=== PATIENT | female | born 1960 | race American Indian/Alaskan Native ===

== ENCOUNTER 2017-11-16 08:10 | Outpatient (CLI) | payer MEDICARE ==
[2017-11-16] MEDS ORDERED: XYLOCAINE TOPICAL 4% TP ONE ×2 (08:55→15:49)
== END 2017-11-16 08:11 | disposition home or self-care (01) ==
LOC: WOUND 08:10
PROVIDERS: ATTEND Nurse Practitioner
DX: E10.621 Type 1 diabetes mellitus with foot ulcer (principal); L97.412 Non-pressure chronic ulcer of right heel and midfoot with fat layer exposed; L97.521 Non-pressure chronic ulcer of other part of left foot limited to breakdown of skin; E10.22 Type 1 diabetes mellitus with diabetic chronic kidney disease; N18.6 End stage renal disease; E10.43 Type 1 diabetes mellitus with diabetic autonomic (poly)neuropathy; Z90.710 Acquired absence of both cervix and uterus
CPT/HCPCS: 11042; 11055; G0463; 99205

== ENCOUNTER 2017-11-23 09:14 | Outpatient (CLI) | payer MEDICARE ==
[2017-11-23] MEDS ORDERED: XYLOCAINE TOPICAL 4% TP ONE (09:55)
== END 2017-11-23 09:15 | disposition home or self-care (01) ==
LOC: WOUND 09:14
PROVIDERS: ATTEND Nurse Practitioner
DX: E10.621 Type 1 diabetes mellitus with foot ulcer (principal); L97.412 Non-pressure chronic ulcer of right heel and midfoot with fat layer exposed; L97.521 Non-pressure chronic ulcer of other part of left foot limited to breakdown of skin; E10.22 Type 1 diabetes mellitus with diabetic chronic kidney disease; N18.6 End stage renal disease; E10.42 Type 1 diabetes mellitus with diabetic polyneuropathy; Z90.710 Acquired absence of both cervix and uterus
CPT/HCPCS: 11055

== ENCOUNTER 2017-11-30 09:21 | Outpatient (CLI) | payer MEDICARE ==
[2017-11-30] MEDS ORDERED: XYLOCAINE TOPICAL 4% TP ONE ×2 (09:41→09:49)
== END 2017-11-30 09:22 | disposition home or self-care (01) ==
LOC: WOUND 09:21
PROVIDERS: ATTEND Nurse Practitioner
DX: E10.621 Type 1 diabetes mellitus with foot ulcer (principal); L97.412 Non-pressure chronic ulcer of right heel and midfoot with fat layer exposed; L97.521 Non-pressure chronic ulcer of other part of left foot limited to breakdown of skin; E10.43 Type 1 diabetes mellitus with diabetic autonomic (poly)neuropathy; E10.22 Type 1 diabetes mellitus with diabetic chronic kidney disease; N18.6 End stage renal disease; Z90.710 Acquired absence of both cervix and uterus

== ENCOUNTER 2017-12-14 09:22 | Outpatient (CLI) | payer MEDICARE ==
[2017-12-14] MEDS ORDERED: XYLOCAINE TOPICAL 4% TP ONE (09:49)
[2017-12-14] MEDS ORDERED: SILVER NITRATE TP ONE (10:31)
== END 2017-12-14 09:23 | disposition home or self-care (01) ==
LOC: WOUND 09:22
PROVIDERS: ATTEND Nurse Practitioner
DX: E10.621 Type 1 diabetes mellitus with foot ulcer (principal); L97.412 Non-pressure chronic ulcer of right heel and midfoot with fat layer exposed; L97.521 Non-pressure chronic ulcer of other part of left foot limited to breakdown of skin; E10.43 Type 1 diabetes mellitus with diabetic autonomic (poly)neuropathy; Z90.710 Acquired absence of both cervix and uterus; E10.22 Type 1 diabetes mellitus with diabetic chronic kidney disease; N18.6 End stage renal disease; Z99.2 Dependence on renal dialysis
CPT/HCPCS: 17250; 87075; 87076; 87116; 87186

== ENCOUNTER 2017-12-14 11:15 | Outpatient (CLI) | payer MEDICARE ==
--- NOTE | 2017-12-14 19:12 | XRay Report ---
FINAL REPORT EXAM: XR FOOT 2V RT HISTORY: Type 2 diabetes mellitus with foot ulcer TECHNIQUE: Two views right foot Comparison: None FINDINGS: Global osteopenia. Ill-defined density projects in the region of the plantar 1/2 digit interspace just lateral to the 1st metatarsal head. There is soft tissue swelling of the 1st metatarsal phalangeal joint. The 1st metatarsal head is irregular without definite erosion. Ossicles are poorly defined. There is a mature plantar calcaneal spur. Mild pes planus. There is an ulcer projecting over calcaneus plantar aspect which does not extend to periosteal surface. There is no erosion. No definite isolated soft tissue gas. The ill-defined density between the 1st and 2nd metatarsals is suggestive of irregular ulceration. IMPRESSION: Approximately 3.1 x 1.0 centimeter ulcer projects at the plantar aspect of the calcaneus without definite calcaneal erosion. No separate foci of gas. Irregular density projects between 1st and 2nd metatarsal shafts, localized to the plantar surface on the lateral projection. This may be a 2nd ulcer. Correlate that with physical exam. Irregularity of the 1st metatarsal head and metatarsophalangeal joint appears degenerative. If there is a concern for osteomyelitis, recommend bone scan or MRI right foot.
== END 2017-12-14 11:16 | disposition home or self-care (01) ==
LOC: XRAY 11:15
PROVIDERS: ATTEND Surgery Vascular Surgery
DX: E11.621 Type 2 diabetes mellitus with foot ulcer (principal); M77.32 Calcaneal spur, left foot; M85.872 Other specified disorders of bone density and structure, left ankle and foot

== ENCOUNTER 2017-12-21 09:22 | Outpatient (CLI) | payer MEDICARE ==
[2017-12-21] MEDS ORDERED: XYLOCAINE TOPICAL 4% TP ONE ×2 (09:30→09:45)
== END 2017-12-21 09:23 | disposition home or self-care (01) ==
LOC: WOUND 09:22
PROVIDERS: ATTEND Nurse Practitioner
DX: E10.621 Type 1 diabetes mellitus with foot ulcer (principal); L97.412 Non-pressure chronic ulcer of right heel and midfoot with fat layer exposed; E10.22 Type 1 diabetes mellitus with diabetic chronic kidney disease; N18.6 End stage renal disease; E10.43 Type 1 diabetes mellitus with diabetic autonomic (poly)neuropathy; Z90.710 Acquired absence of both cervix and uterus
CPT/HCPCS: 11055

== ENCOUNTER 2017-12-28 07:55 | Outpatient (CLI) | payer MEDICARE ==
--- NOTE | 2018-01-03 10:54 | Vascular Lab Report ---
LOWER EXTREMITY ARTERIAL DUPLEX: REASON FOR EXAM: Peripheral arterial disease with ulcers. COMMENTS ON THE RIGHT: Triphasic waveforms are seen proximally. Biphasic waveforms are seen distally. No significant velocity gradients are identified. Scattered plaque is seen throughout. Findings are consistent with mildly abnormal perfusion. Findings are consistent with the ability to heal distal wounds. COMMENTS ON THE LEFT: Triphasic waveforms are seen proximally. Biphasic waveforms are seen distally. No significant velocity gradients are identified. Scattered plaque is seen throughout. Findings are consistent with mildly abnormal perfusion. Findings are consistent with the ability to heal distal wounds. IMPRESSION: No obvious significant large arterial occlusion in either lower extremity. Waveforms are mildly abnormal and consistent with distal tibial disease. However flow appears to be preserved to the feet bilaterally. Clinical correlation recommended.
--- NOTE | 2018-01-03 10:55 | Vascular Lab Report ---
LOWER EXTREMITY ARTERIAL PHYSIOLOGIC STUDY: REASON FOR EXAM: Peripheral arterial disease with ulceration. COMMENTS ON THE RIGHT: Ankle brachial index is 1.38. This value is consistent with incompressible vessels. Pulse volume recording at the level of the ankle is normal. Exercise testing was not done. COMMENTS ON THE LEFT: Ankle brachial index is 1.38. This value is consistent with incompressible vessels. Pulse volume recording at the level of the ankle is mildly abnormal. Exercise testing was not done. IMPRESSION: Findings are consistent with incompressible vessels bilaterally. This usually happens with medial calcinosis. Pulse volume recording suggests adequate flow on the right but mildly abnormal flow on the left.
== END 2017-12-28 07:56 | disposition home or self-care (01) ==
LOC: VAS 07:55
PROVIDERS: ATTEND Nurse Practitioner
DX: E10.43 Type 1 diabetes mellitus with diabetic autonomic (poly)neuropathy (principal); L97.412 Non-pressure chronic ulcer of right heel and midfoot with fat layer exposed; I73.9 Peripheral vascular disease, unspecified; R09.89 Other specified symptoms and signs involving the circulatory and respiratory systems
CPT/HCPCS: 93922; 93925

== ENCOUNTER 2017-12-28 09:25 | Outpatient (CLI) | payer MEDICARE ==
[2017-12-28] MEDS ORDERED: XYLOCAINE TOPICAL 4% TP ONE ×2 (10:00→10:01)
== END 2017-12-28 09:26 | disposition home or self-care (01) ==
LOC: WOUND 09:25
PROVIDERS: ATTEND Nurse Practitioner
DX: E10.621 Type 1 diabetes mellitus with foot ulcer (principal); L97.412 Non-pressure chronic ulcer of right heel and midfoot with fat layer exposed; E10.22 Type 1 diabetes mellitus with diabetic chronic kidney disease; N18.6 End stage renal disease; E10.43 Type 1 diabetes mellitus with diabetic autonomic (poly)neuropathy; L97.521 Non-pressure chronic ulcer of other part of left foot limited to breakdown of skin; Z90.710 Acquired absence of both cervix and uterus

== ENCOUNTER 2018-01-04 09:26 | Outpatient (CLI) | payer MEDICARE ==
[2018-01-04] MEDS ORDERED: XYLOCAINE TOPICAL 4% TP ONE (09:40)
== END 2018-01-04 09:27 | disposition home or self-care (01) ==
LOC: WOUND 09:26
PROVIDERS: ATTEND Nurse Practitioner
DX: E10.621 Type 1 diabetes mellitus with foot ulcer (principal); L97.412 Non-pressure chronic ulcer of right heel and midfoot with fat layer exposed; L97.511 Non-pressure chronic ulcer of other part of right foot limited to breakdown of skin; E10.43 Type 1 diabetes mellitus with diabetic autonomic (poly)neuropathy; E10.22 Type 1 diabetes mellitus with diabetic chronic kidney disease; N18.6 End stage renal disease; Z90.710 Acquired absence of both cervix and uterus

== ENCOUNTER 2018-01-04 11:27 | Outpatient (CLI) | payer MEDICARE ==
[2018-01-04 12:06] LABS: Hemoglobin 8.7 gm/dl (10.1-14.3); Mean Corpuscular HGB Conc 30 % (30-34); Platelet Count 222 K/mm3 (140-440); Red Blood Count 4.68 M/mm3 (3.65-5.03)
[2018-01-04 12:07] LABS: Mean Corpuscular Hemoglobin 19 pg (28-32); Mean Corpuscular Volume 62 fl (79-97); Red Cell Distribution Width 20.9 % (13.2-15.2)
[2018-01-04 12:21] LABS: Albumin 4.2 g/dL (3.9-5); Calcium 9.3 mg/dL (8.4-10.2)
--- NOTE | 2018-01-04 12:57 | XRay Report ---
Chest 2 views: History: Diabetic. hbo evaluation Findings: Normal cardiomediastinal silhouette. Trachea is midline. No consolidation, pneumothorax or pleural effusion. Impression: No acute cardiopulmonary findings
--- NOTE | 2018-01-04 12:59 | XRay Report ---
Right foot 2 views: History: Foot ulcer. Findings: Hallux valgus metatarsophalangeal joint great toe right foot. Arthritic changes in the interphalangeal joints great toe, second, third, fourth and fifth toes. Spur posterior inferior calcaneum. No periosteal reaction or lytic lesion. Impression:
== END 2018-01-04 11:28 | disposition home or self-care (01) ==
LOC: XRAY 11:27
PROVIDERS: ATTEND Surgery Vascular Surgery
DX: L97.412 Non-pressure chronic ulcer of right heel and midfoot with fat layer exposed (principal); E08.621 Diabetes mellitus due to underlying condition with foot ulcer; M20.11 Hallux valgus (acquired), right foot; M19.071 Primary osteoarthritis, right ankle and foot
CPT/HCPCS: 36415; 71046; 80053; 83036; 85027

== ENCOUNTER 2018-01-11 10:16 | Outpatient (CLI) | payer MEDICARE ==
[2018-01-11] MEDS ORDERED: XYLOCAINE TOPICAL 4% TP ONE ×2 (10:35→13:00)
[2018-01-11] MEDS ORDERED: SILVER NITRATE TP ONE ×2 (10:44→12:36)
[2018-01-11] MEDS ORDERED: SILVER NITRATE ONE (13:00)
== END 2018-01-11 10:17 | disposition home or self-care (01) ==
LOC: WOUND 10:16
PROVIDERS: ATTEND Surgery
DX: T81.31XD Disruption of external operation (surgical) wound, not elsewhere classified, subsequent encounter (principal); E11.622 Type 2 diabetes mellitus with other skin ulcer; L97.321 Non-pressure chronic ulcer of left ankle limited to breakdown of skin; I10 Essential (primary) hypertension; F17.210 Nicotine dependence, cigarettes, uncomplicated; F20.81 Schizophreniform disorder; Z89.012 Acquired absence of left thumb; Y83.8 Other surgical procedures as the cause of abnormal reaction of the patient, or of later complication, without mention of misadventure at the time of the procedure

== ENCOUNTER 2018-01-18 09:22 | Outpatient (CLI) | payer MEDICARE ==
[2018-01-18] MEDS ORDERED: XYLOCAINE TOPICAL 4% TP ONE ×2 (09:41→09:43)
== END 2018-01-18 09:23 | disposition home or self-care (01) ==
LOC: WOUND 09:22
PROVIDERS: ATTEND Nurse Practitioner
DX: E11.621 Type 2 diabetes mellitus with foot ulcer (principal); L97.412 Non-pressure chronic ulcer of right heel and midfoot with fat layer exposed; E11.42 Type 2 diabetes mellitus with diabetic polyneuropathy; E11.22 Type 2 diabetes mellitus with diabetic chronic kidney disease; N18.6 End stage renal disease; R29.6 Repeated falls; Z90.710 Acquired absence of both cervix and uterus

== ENCOUNTER 2018-02-08 09:51 | Outpatient (CLI) | payer MEDICARE ==
[2018-02-08] MEDS ORDERED: XYLOCAINE TOPICAL 4% TP ONE ×2 (10:07→10:27)
== END 2018-02-08 09:52 | disposition home or self-care (01) ==
LOC: WOUND 09:51
PROVIDERS: ATTEND Surgery
DX: E11.621 Type 2 diabetes mellitus with foot ulcer (principal); L97.412 Non-pressure chronic ulcer of right heel and midfoot with fat layer exposed; E11.42 Type 2 diabetes mellitus with diabetic polyneuropathy; E11.22 Type 2 diabetes mellitus with diabetic chronic kidney disease; N18.6 End stage renal disease; R29.6 Repeated falls; Z90.710 Acquired absence of both cervix and uterus
CPT/HCPCS: 87075; 87076; 87116; 87186

== ENCOUNTER 2018-03-01 10:15 | Outpatient (CLI) | payer MEDICARE ==
[2018-03-01] MEDS ORDERED: XYLOCAINE TOPICAL 4% TP ONE ×2 (10:25→10:26)
[2018-03-01] MEDS ORDERED: SILVER NITRATE TP ONE ×2 (11:13→15:42)
== END 2018-03-01 10:16 | disposition home or self-care (01) ==
LOC: WOUND 10:15
PROVIDERS: ATTEND Surgery
DX: E10.621 Type 1 diabetes mellitus with foot ulcer (principal); L97.412 Non-pressure chronic ulcer of right heel and midfoot with fat layer exposed; E10.42 Type 1 diabetes mellitus with diabetic polyneuropathy; E10.22 Type 1 diabetes mellitus with diabetic chronic kidney disease; N18.6 End stage renal disease; Z90.710 Acquired absence of both cervix and uterus

== ENCOUNTER 2018-04-19 10:26 | Outpatient (CLI) | payer MEDICARE ==
[2018-04-19] MEDS ORDERED: XYLOCAINE TOPICAL 4% TP ONE (10:52)
[2018-04-19] MEDS ORDERED: SILVER NITRATE TP ONE ×2 (11:25→11:59)
[2018-04-20] MEDS ORDERED: NACL 0.9% 500 ML 500 ML ONE (09:57)
[2018-04-20] MEDS ORDERED: HEPARIN/NS 5000 UNIT/500ML(CATH LAB) 500 ML IR ONE (11:50)
[2018-04-20] MEDS ORDERED: HEPARIN/ 0.45% NACL-25,000 UNIT/500 ML 25,000 UNIT/500 ML BAG ONE (11:50)
== END 2018-04-19 10:27 | disposition home or self-care (01) ==
LOC: WOUND 10:26
PROVIDERS: ATTEND Surgery
DX: E11.621 Type 2 diabetes mellitus with foot ulcer (principal); L97.412 Non-pressure chronic ulcer of right heel and midfoot with fat layer exposed; E11.42 Type 2 diabetes mellitus with diabetic polyneuropathy; E11.22 Type 2 diabetes mellitus with diabetic chronic kidney disease; N18.6 End stage renal disease; Z90.710 Acquired absence of both cervix and uterus
CPT/HCPCS: 11042; G0463; J1644; J7040

== ENCOUNTER 2018-04-27 10:54 | Outpatient (CLI) | payer MEDICARE ==
[2018-04-27] MEDS ORDERED: XYLOCAINE TOPICAL 4% TP ONE ×2 (11:07→16:06)
== END 2018-04-27 10:55 | disposition home or self-care (01) ==
LOC: WOUND 10:54
PROVIDERS: ATTEND Surgery
DX: E11.621 Type 2 diabetes mellitus with foot ulcer (principal); L97.412 Non-pressure chronic ulcer of right heel and midfoot with fat layer exposed; E11.42 Type 2 diabetes mellitus with diabetic polyneuropathy; E11.22 Type 2 diabetes mellitus with diabetic chronic kidney disease; N18.6 End stage renal disease; Z90.710 Acquired absence of both cervix and uterus
CPT/HCPCS: 97605

== ENCOUNTER 2018-05-18 10:17 | Outpatient (CLI) | payer MEDICARE ==
[2018-05-18] MEDS ORDERED: XYLOCAINE TOPICAL 4% TP ONE ×2 (10:58→11:29)
[2018-05-18] MEDS ORDERED: SILVER NITRATE TP ONE ×2 (11:46→11:49)
== END 2018-05-18 10:18 | disposition home or self-care (01) ==
LOC: WOUND 10:17
PROVIDERS: ATTEND Surgery
DX: E11.621 Type 2 diabetes mellitus with foot ulcer (principal); L97.412 Non-pressure chronic ulcer of right heel and midfoot with fat layer exposed; E11.42 Type 2 diabetes mellitus with diabetic polyneuropathy; Z90.710 Acquired absence of both cervix and uterus
CPT/HCPCS: 97605

== ENCOUNTER 2018-05-25 11:10 | Outpatient (CLI) | payer MEDICARE ==
[2018-05-25] MEDS ORDERED: XYLOCAINE TOPICAL 4% TP ONE ×2 (11:38→15:52)
== END 2018-05-25 11:11 | disposition home or self-care (01) ==
LOC: WOUND 11:10
PROVIDERS: ATTEND Surgery
DX: E11.621 Type 2 diabetes mellitus with foot ulcer (principal); L97.412 Non-pressure chronic ulcer of right heel and midfoot with fat layer exposed; E11.42 Type 2 diabetes mellitus with diabetic polyneuropathy; Z90.710 Acquired absence of both cervix and uterus
CPT/HCPCS: 97605

== ENCOUNTER 2018-06-01 11:12 | Outpatient (CLI) | payer MEDICARE ==
[2018-06-01] MEDS ORDERED: XYLOCAINE TOPICAL 4% TP ONE ×2 (11:23→11:47)
[2018-06-01] MEDS ORDERED: AD OINTMENT TP ONE (11:24)
[2018-06-01] MEDS ORDERED: AD OINTMENT TP PRN (11:48)
== END 2018-06-01 11:13 | disposition home or self-care (01) ==
LOC: WOUND 11:12
PROVIDERS: ATTEND Surgery
DX: E11.621 Type 2 diabetes mellitus with foot ulcer (principal); L97.412 Non-pressure chronic ulcer of right heel and midfoot with fat layer exposed; E11.42 Type 2 diabetes mellitus with diabetic polyneuropathy; Z90.710 Acquired absence of both cervix and uterus
CPT/HCPCS: 97605; A6250

== ENCOUNTER 2018-06-08 10:25 | Outpatient (CLI) | payer MEDICARE ==
[2018-06-08] MEDS ORDERED: XYLOCAINE TOPICAL 4% TP ONE ×2 (11:18→11:23)
== END 2018-06-08 10:26 | disposition home or self-care (01) ==
LOC: WOUND 10:25
PROVIDERS: ATTEND Surgery
DX: E11.621 Type 2 diabetes mellitus with foot ulcer (principal); L97.412 Non-pressure chronic ulcer of right heel and midfoot with fat layer exposed; E11.42 Type 2 diabetes mellitus with diabetic polyneuropathy; Z90.710 Acquired absence of both cervix and uterus
CPT/HCPCS: 97605

== ENCOUNTER 2018-06-22 11:03 | Outpatient (CLI) | payer MEDICARE ==
[2018-06-22] MEDS ORDERED: XYLOCAINE TOPICAL 4% TP ONE ×2 (11:31→15:37)
== END 2018-06-22 11:04 | disposition home or self-care (01) ==
LOC: WOUND 11:03
PROVIDERS: ATTEND Surgery
DX: E11.621 Type 2 diabetes mellitus with foot ulcer (principal); L97.412 Non-pressure chronic ulcer of right heel and midfoot with fat layer exposed; E11.42 Type 2 diabetes mellitus with diabetic polyneuropathy; Z90.710 Acquired absence of both cervix and uterus
CPT/HCPCS: 87075; 87076; 87116; 87186; 97605

== ENCOUNTER 2018-08-31 11:07 | Outpatient (CLI) | payer MEDICARE ==
[2018-08-31] MEDS ORDERED: XYLOCAINE TOPICAL 4% TP ONE (11:40)
[2018-08-31] MEDS ORDERED: SILVER NITRATE TP ONE (11:41)
== END 2018-08-31 11:08 | disposition home or self-care (01) ==
LOC: WOUND 11:07
PROVIDERS: ATTEND Surgery
DX: E11.621 Type 2 diabetes mellitus with foot ulcer (principal); L97.412 Non-pressure chronic ulcer of right heel and midfoot with fat layer exposed; E11.42 Type 2 diabetes mellitus with diabetic polyneuropathy; E11.22 Type 2 diabetes mellitus with diabetic chronic kidney disease; N18.6 End stage renal disease; Z90.710 Acquired absence of both cervix and uterus
CPT/HCPCS: 97605

== ENCOUNTER 2018-09-07 11:17 | Outpatient (CLI) | payer MEDICARE ==
[2018-09-07] MEDS ORDERED: XYLOCAINE TOPICAL 4% TP ONE (11:32)
[2018-09-07] MEDS ORDERED: SILVER NITRATE TP ONE (12:16)
== END 2018-09-07 11:18 | disposition home or self-care (01) ==
LOC: WOUND 11:17
PROVIDERS: ATTEND Surgery
DX: E11.621 Type 2 diabetes mellitus with foot ulcer (principal); L97.412 Non-pressure chronic ulcer of right heel and midfoot with fat layer exposed; E11.42 Type 2 diabetes mellitus with diabetic polyneuropathy; E11.22 Type 2 diabetes mellitus with diabetic chronic kidney disease; N18.6 End stage renal disease; Z90.710 Acquired absence of both cervix and uterus

== ENCOUNTER 2018-09-14 10:23 | Outpatient (CLI) | payer MEDICARE ==
[2018-09-14] MEDS ORDERED: XYLOCAINE TOPICAL 4% TP ONE (10:35)
== END 2018-09-14 10:24 | disposition home or self-care (01) ==
LOC: WOUND 10:23
PROVIDERS: ATTEND Surgery
DX: E11.621 Type 2 diabetes mellitus with foot ulcer (principal); L97.512 Non-pressure chronic ulcer of other part of right foot with fat layer exposed; E11.42 Type 2 diabetes mellitus with diabetic polyneuropathy; N18.6 End stage renal disease; E11.22 Type 2 diabetes mellitus with diabetic chronic kidney disease; Z90.710 Acquired absence of both cervix and uterus
CPT/HCPCS: 97605

== ENCOUNTER 2018-09-21 11:01 | Outpatient (CLI) | payer MEDICARE ==
[2018-09-21] MEDS ORDERED: XYLOCAINE TOPICAL 4% TP ONE (11:07)
[2018-09-21] MEDS ORDERED: SILVER NITRATE TP ONE (11:07)
== END 2018-09-21 11:02 | disposition home or self-care (01) ==
LOC: WOUND 11:01
PROVIDERS: ATTEND Surgery
DX: E11.621 Type 2 diabetes mellitus with foot ulcer (principal); L97.412 Non-pressure chronic ulcer of right heel and midfoot with fat layer exposed; L84 Corns and callosities; E11.22 Type 2 diabetes mellitus with diabetic chronic kidney disease; N18.6 End stage renal disease; E11.42 Type 2 diabetes mellitus with diabetic polyneuropathy; Z90.49 Acquired absence of other specified parts of digestive tract
CPT/HCPCS: 97605

== ENCOUNTER 2018-09-28 11:13 | Outpatient (CLI) | payer MEDICARE | END 2018-09-28 11:14 | disposition home or self-care (01) | LOC: WOUND 11:13 | PROVIDERS: ATTEND Surgery | DX: E11.621 Type 2 diabetes mellitus with foot ulcer (principal); L97.412 Non-pressure chronic ulcer of right heel and midfoot with fat layer exposed; E11.42 Type 2 diabetes mellitus with diabetic polyneuropathy; E11.22 Type 2 diabetes mellitus with diabetic chronic kidney disease; N18.6 End stage renal disease; Z99.2 Dependence on renal dialysis; Z90.710 Acquired absence of both cervix and uterus | CPT/HCPCS: 87075; 87076; 87116; 87186; 97605 ==

== ENCOUNTER 2018-10-05 11:02 | Outpatient (CLI) | payer MEDICARE ==
[2018-10-05] MEDS ORDERED: DAKIN'S FULL STRENGTH TP ONE (11:57)
== END 2018-10-05 11:03 | disposition home or self-care (01) ==
LOC: WOUND 11:02
PROVIDERS: ATTEND Surgery
DX: E11.621 Type 2 diabetes mellitus with foot ulcer (principal); L97.412 Non-pressure chronic ulcer of right heel and midfoot with fat layer exposed; E11.42 Type 2 diabetes mellitus with diabetic polyneuropathy; E11.22 Type 2 diabetes mellitus with diabetic chronic kidney disease; N18.6 End stage renal disease; Z90.710 Acquired absence of both cervix and uterus

== ENCOUNTER 2018-10-12 11:21 | Outpatient (CLI) | payer MEDICARE | END 2018-10-12 11:22 | disposition home or self-care (01) | LOC: WOUND 11:21 ==

== ENCOUNTER 2018-10-19 11:03 | Outpatient (CLI) | payer MEDICARE ==
[2018-10-19] MEDS ORDERED: SILVER NITRATE TP ONE (11:51)
[2018-10-19] MEDS ORDERED: AD OINTMENT TP PRN (12:19)
== END 2018-10-19 11:04 | disposition home or self-care (01) ==
LOC: WOUND 11:03
PROVIDERS: ATTEND Surgery
DX: E11.621 Type 2 diabetes mellitus with foot ulcer (principal); L97.412 Non-pressure chronic ulcer of right heel and midfoot with fat layer exposed; E11.42 Type 2 diabetes mellitus with diabetic polyneuropathy; E11.22 Type 2 diabetes mellitus with diabetic chronic kidney disease; N18.6 End stage renal disease; Z90.710 Acquired absence of both cervix and uterus
CPT/HCPCS: 97605; A6250

== ENCOUNTER 2018-10-26 11:11 | Outpatient (CLI) | payer MEDICARE ==
[2018-10-26] MEDS ORDERED: AD OINTMENT TP SCH (12:00)
[2018-10-26] MEDS ORDERED: XYLOCAINE TOPICAL 4% TP ONE (12:16)
== END 2018-10-26 11:12 | disposition home or self-care (01) ==
LOC: WOUND 11:11
PROVIDERS: ATTEND Surgery
DX: E11.621 Type 2 diabetes mellitus with foot ulcer (principal); L97.412 Non-pressure chronic ulcer of right heel and midfoot with fat layer exposed; L84 Corns and callosities; E11.22 Type 2 diabetes mellitus with diabetic chronic kidney disease; N18.6 End stage renal disease; E11.42 Type 2 diabetes mellitus with diabetic polyneuropathy; Z90.710 Acquired absence of both cervix and uterus
CPT/HCPCS: 97605; A6250

== ENCOUNTER 2018-11-02 11:05 | Outpatient (CLI) | payer MEDICARE ==
[2018-11-02] MEDS ORDERED: XYLOCAINE TOPICAL 4% TP ONE (12:41)
== END 2018-11-02 11:06 | disposition home or self-care (01) ==
LOC: WOUND 11:05
PROVIDERS: ATTEND Surgery
DX: E11.621 Type 2 diabetes mellitus with foot ulcer (principal); L97.412 Non-pressure chronic ulcer of right heel and midfoot with fat layer exposed; E11.22 Type 2 diabetes mellitus with diabetic chronic kidney disease; N18.6 End stage renal disease; E11.42 Type 2 diabetes mellitus with diabetic polyneuropathy; Z90.710 Acquired absence of both cervix and uterus
CPT/HCPCS: 97605

== ENCOUNTER 2018-11-09 10:58 | Outpatient (CLI) | payer MEDICARE ==
[2018-11-09] MEDS ORDERED: XYLOCAINE TOPICAL 4% TP ONE (11:45)
== END 2018-11-09 10:59 | disposition home or self-care (01) ==
LOC: WOUND 10:58
PROVIDERS: ATTEND Surgery
DX: E11.621 Type 2 diabetes mellitus with foot ulcer (principal); L97.412 Non-pressure chronic ulcer of right heel and midfoot with fat layer exposed; E11.22 Type 2 diabetes mellitus with diabetic chronic kidney disease; N18.6 End stage renal disease; E11.42 Type 2 diabetes mellitus with diabetic polyneuropathy; Z90.710 Acquired absence of both cervix and uterus
CPT/HCPCS: 97605

== ENCOUNTER 2018-11-16 10:56 | Outpatient (CLI) | payer MEDICARE ==
[2018-11-16] MEDS ORDERED: SILVER NITRATE TP ONE (11:30)
== END 2018-11-16 10:57 | disposition home or self-care (01) ==
LOC: WOUND 10:56
PROVIDERS: ATTEND Surgery
DX: E11.621 Type 2 diabetes mellitus with foot ulcer (principal); L97.412 Non-pressure chronic ulcer of right heel and midfoot with fat layer exposed; L84 Corns and callosities; E11.22 Type 2 diabetes mellitus with diabetic chronic kidney disease; N18.6 End stage renal disease; E11.42 Type 2 diabetes mellitus with diabetic polyneuropathy; Z90.710 Acquired absence of both cervix and uterus
CPT/HCPCS: 97605

== ENCOUNTER 2018-11-30 10:53 | Outpatient (CLI) | payer MEDICARE | END 2018-11-30 10:54 | disposition home or self-care (01) | LOC: WOUND 10:53 | PROVIDERS: ATTEND Surgery | DX: E11.621 Type 2 diabetes mellitus with foot ulcer (principal); L97.412 Non-pressure chronic ulcer of right heel and midfoot with fat layer exposed; L84 Corns and callosities; E11.42 Type 2 diabetes mellitus with diabetic polyneuropathy; E11.22 Type 2 diabetes mellitus with diabetic chronic kidney disease; N18.6 End stage renal disease; Z90.710 Acquired absence of both cervix and uterus | CPT/HCPCS: 97605 ==

== ENCOUNTER 2018-12-07 10:53 | Outpatient (CLI) | payer MEDICARE ==
[2018-12-07] MEDS ORDERED: XYLOCAINE TOPICAL 4% TP ONE (10:56)
[2018-12-08] MEDS ORDERED: AD OINTMENT TP SCH (10:00)
== END 2018-12-07 10:54 | disposition home or self-care (01) ==
LOC: WOUND 10:53
PROVIDERS: ATTEND Surgery
DX: E11.621 Type 2 diabetes mellitus with foot ulcer (principal); L97.412 Non-pressure chronic ulcer of right heel and midfoot with fat layer exposed; L97.521 Non-pressure chronic ulcer of other part of left foot limited to breakdown of skin; E11.22 Type 2 diabetes mellitus with diabetic chronic kidney disease; N18.6 End stage renal disease; E11.42 Type 2 diabetes mellitus with diabetic polyneuropathy; Z99.2 Dependence on renal dialysis; Z90.710 Acquired absence of both cervix and uterus
CPT/HCPCS: 97605

== ENCOUNTER 2018-12-14 10:49 | Outpatient (CLI) | payer MEDICARE ==
[2018-12-14] MEDS ORDERED: XYLOCAINE TOPICAL 4% TP ONE (10:55)
[2018-12-14] MEDS ORDERED: SILVER NITRATE TP ONE (10:55)
== END 2018-12-14 10:50 | disposition home or self-care (01) ==
LOC: WOUND 10:49
PROVIDERS: ATTEND Surgery
DX: E11.621 Type 2 diabetes mellitus with foot ulcer (principal); L97.412 Non-pressure chronic ulcer of right heel and midfoot with fat layer exposed; E11.22 Type 2 diabetes mellitus with diabetic chronic kidney disease; N18.6 End stage renal disease; E11.42 Type 2 diabetes mellitus with diabetic polyneuropathy; Z90.710 Acquired absence of both cervix and uterus
CPT/HCPCS: 97605

== ENCOUNTER 2018-12-28 11:07 | Outpatient (CLI) | payer MEDICARE ==
[2018-12-28] MEDS ORDERED: AD OINTMENT TP SCH (12:00)
[2018-12-28] MEDS ORDERED: XYLOCAINE TOPICAL 4% TP ONE (12:00)
== END 2018-12-28 11:08 | disposition home or self-care (01) ==
LOC: WOUND 11:07
PROVIDERS: ATTEND Surgery
DX: E11.621 Type 2 diabetes mellitus with foot ulcer (principal); L97.412 Non-pressure chronic ulcer of right heel and midfoot with fat layer exposed; E11.42 Type 2 diabetes mellitus with diabetic polyneuropathy; N28.9 Disorder of kidney and ureter, unspecified; Z90.49 Acquired absence of other specified parts of digestive tract
CPT/HCPCS: 87075; 87076; 87116; 87186; 97605

== ENCOUNTER 2019-01-04 10:51 | Outpatient (CLI) | payer MEDICARE ==
[2019-01-04] MEDS ORDERED: XYLOCAINE TOPICAL 4% TP ONE (11:00)
[2019-01-04] MEDS ORDERED: SILVER NITRATE TP ONE (12:00)
[2019-01-04] MEDS ORDERED: DAKIN'S FULL STRENGTH TP ONE (12:00)
== END 2019-01-04 10:52 | disposition home or self-care (01) ==
LOC: WOUND 10:51
PROVIDERS: ATTEND Surgery
DX: E11.621 Type 2 diabetes mellitus with foot ulcer (principal); L97.412 Non-pressure chronic ulcer of right heel and midfoot with fat layer exposed; L84 Corns and callosities; E11.22 Type 2 diabetes mellitus with diabetic chronic kidney disease; N18.6 End stage renal disease; E11.42 Type 2 diabetes mellitus with diabetic polyneuropathy; Z90.710 Acquired absence of both cervix and uterus

== ENCOUNTER 2019-01-25 10:54 | Outpatient (CLI) | payer MEDICARE ==
[2019-01-25] MEDS ORDERED: SODIUM CHLORIDE FLUSH SYRINGE 10 ML IV ONE (12:31)
== END 2019-01-25 10:55 | disposition home or self-care (01) ==
LOC: WOUND 10:54
PROVIDERS: ATTEND Surgery
DX: E11.621 Type 2 diabetes mellitus with foot ulcer (principal); L97.412 Non-pressure chronic ulcer of right heel and midfoot with fat layer exposed; L84 Corns and callosities; E11.22 Type 2 diabetes mellitus with diabetic chronic kidney disease; N18.6 End stage renal disease; E11.42 Type 2 diabetes mellitus with diabetic polyneuropathy; Z90.710 Acquired absence of both cervix and uterus
CPT/HCPCS: 15275; 97605

== ENCOUNTER 2019-02-01 10:48 | Outpatient (CLI) | payer MEDICARE ==
[2019-02-01] MEDS ORDERED: SILVER NITRATE TP ONE (11:30)
== END 2019-02-01 10:49 | disposition home or self-care (01) ==
LOC: WOUND 10:48
PROVIDERS: ATTEND Surgery
DX: E11.621 Type 2 diabetes mellitus with foot ulcer (principal); L97.412 Non-pressure chronic ulcer of right heel and midfoot with fat layer exposed; L84 Corns and callosities; E11.22 Type 2 diabetes mellitus with diabetic chronic kidney disease; N18.6 End stage renal disease; E11.42 Type 2 diabetes mellitus with diabetic polyneuropathy; Z90.710 Acquired absence of both cervix and uterus
CPT/HCPCS: 97605

== ENCOUNTER 2019-02-05 12:54 | Outpatient (CLI) | payer MEDICARE | END 2019-02-05 12:55 | disposition home or self-care (01) | LOC: WOUND 12:54 | PROVIDERS: ATTEND Surgery | DX: E11.621 Type 2 diabetes mellitus with foot ulcer (principal); L97.412 Non-pressure chronic ulcer of right heel and midfoot with fat layer exposed; L84 Corns and callosities; E11.22 Type 2 diabetes mellitus with diabetic chronic kidney disease; N18.6 End stage renal disease; E11.42 Type 2 diabetes mellitus with diabetic polyneuropathy; Z90.710 Acquired absence of both cervix and uterus | CPT/HCPCS: 99213; G0463 ==

== ENCOUNTER 2019-02-08 10:49 | Outpatient (CLI) | payer MEDICARE | END 2019-02-08 10:50 | disposition home or self-care (01) | LOC: WOUND 10:49 | PROVIDERS: ATTEND Surgery | DX: E11.621 Type 2 diabetes mellitus with foot ulcer (principal); L97.412 Non-pressure chronic ulcer of right heel and midfoot with fat layer exposed; L84 Corns and callosities; E11.42 Type 2 diabetes mellitus with diabetic polyneuropathy; E11.22 Type 2 diabetes mellitus with diabetic chronic kidney disease; N18.6 End stage renal disease; Z90.710 Acquired absence of both cervix and uterus | CPT/HCPCS: 15275 ==

== ENCOUNTER 2019-02-12 12:55 | Outpatient (CLI) | payer MEDICARE | END 2019-02-12 12:56 | disposition home or self-care (01) | LOC: WOUND 12:55 | PROVIDERS: ATTEND Surgery | DX: E11.621 Type 2 diabetes mellitus with foot ulcer (principal); L97.412 Non-pressure chronic ulcer of right heel and midfoot with fat layer exposed; L84 Corns and callosities; E11.22 Type 2 diabetes mellitus with diabetic chronic kidney disease; N18.6 End stage renal disease; E11.42 Type 2 diabetes mellitus with diabetic polyneuropathy; Z90.710 Acquired absence of both cervix and uterus | CPT/HCPCS: 99212; G0463 ==

== ENCOUNTER 2019-02-15 10:58 | Outpatient (CLI) | payer MEDICARE | END 2019-02-15 10:59 | disposition home or self-care (01) | LOC: WOUND 10:58 | PROVIDERS: ATTEND Surgery | DX: E11.621 Type 2 diabetes mellitus with foot ulcer (principal); L97.412 Non-pressure chronic ulcer of right heel and midfoot with fat layer exposed; L84 Corns and callosities; E11.22 Type 2 diabetes mellitus with diabetic chronic kidney disease; N18.6 End stage renal disease; E11.42 Type 2 diabetes mellitus with diabetic polyneuropathy; Z90.710 Acquired absence of both cervix and uterus | CPT/HCPCS: 99213; G0463 ==

== ENCOUNTER 2019-02-19 12:58 | Outpatient (CLI) | payer MEDICARE | END 2019-02-19 12:59 | disposition home or self-care (01) | LOC: WOUND 12:58 | PROVIDERS: ATTEND Surgery | DX: E11.621 Type 2 diabetes mellitus with foot ulcer (principal); L97.412 Non-pressure chronic ulcer of right heel and midfoot with fat layer exposed; L84 Corns and callosities; E11.22 Type 2 diabetes mellitus with diabetic chronic kidney disease; N18.6 End stage renal disease; E11.42 Type 2 diabetes mellitus with diabetic polyneuropathy; Z90.710 Acquired absence of both cervix and uterus | CPT/HCPCS: 99212; G0463 ==

== ENCOUNTER 2019-02-22 11:19 | Outpatient (CLI) | payer MEDICARE ==
[2019-02-22] MEDS ORDERED: SODIUM CHLORIDE FLUSH SYRINGE 10 ML IV PRN (11:43)
[2019-02-22] MEDS ORDERED: SILVER NITRATE TP ONE (12:00)
== END 2019-02-22 11:20 | disposition home or self-care (01) ==
LOC: WOUND 11:19
PROVIDERS: ATTEND Surgery
DX: E11.621 Type 2 diabetes mellitus with foot ulcer (principal); L97.412 Non-pressure chronic ulcer of right heel and midfoot with fat layer exposed; L84 Corns and callosities; E11.22 Type 2 diabetes mellitus with diabetic chronic kidney disease; N18.6 End stage renal disease; E11.42 Type 2 diabetes mellitus with diabetic polyneuropathy; Z90.710 Acquired absence of both cervix and uterus
CPT/HCPCS: 15275

== ENCOUNTER 2019-03-08 10:55 | Outpatient (CLI) | payer MEDICARE ==
[2019-03-08] MEDS ORDERED: SILVER NITRATE TP ONE (11:30)
[2019-03-08] MEDS ORDERED: SODIUM CHLORIDE FLUSH SYRINGE 10 ML IV PRN (11:30)
[2019-03-08] MEDS ORDERED: AD OINTMENT TP PRN (11:30)
== END 2019-03-08 10:56 | disposition home or self-care (01) ==
LOC: WOUND 10:55
PROVIDERS: ATTEND Surgery
DX: E11.621 Type 2 diabetes mellitus with foot ulcer (principal); L97.412 Non-pressure chronic ulcer of right heel and midfoot with fat layer exposed; L84 Corns and callosities; E11.22 Type 2 diabetes mellitus with diabetic chronic kidney disease; N18.6 End stage renal disease; E11.42 Type 2 diabetes mellitus with diabetic polyneuropathy; Z90.710 Acquired absence of both cervix and uterus
CPT/HCPCS: 15275; A6250

== ENCOUNTER 2019-03-15 10:59 | Outpatient (CLI) | payer MEDICARE | END 2019-03-15 11:00 | disposition home or self-care (01) | LOC: WOUND 10:59 | PROVIDERS: ATTEND Surgery | DX: E11.621 Type 2 diabetes mellitus with foot ulcer (principal); L97.412 Non-pressure chronic ulcer of right heel and midfoot with fat layer exposed; L84 Corns and callosities; E11.22 Type 2 diabetes mellitus with diabetic chronic kidney disease; N18.6 End stage renal disease; E11.42 Type 2 diabetes mellitus with diabetic polyneuropathy; Z90.710 Acquired absence of both cervix and uterus ==

== ENCOUNTER 2019-03-29 11:11 | Outpatient (CLI) | payer MEDICARE | END 2019-03-29 11:12 | disposition home or self-care (01) | LOC: WOUND 11:11 | PROVIDERS: ATTEND Surgery | DX: E11.621 Type 2 diabetes mellitus with foot ulcer (principal); L97.412 Non-pressure chronic ulcer of right heel and midfoot with fat layer exposed; E11.22 Type 2 diabetes mellitus with diabetic chronic kidney disease; N18.6 End stage renal disease; E11.42 Type 2 diabetes mellitus with diabetic polyneuropathy; Z90.710 Acquired absence of both cervix and uterus | CPT/HCPCS: 97605 ==

== ENCOUNTER 2019-04-05 11:07 | Outpatient (CLI) | payer MEDICARE | END 2019-04-05 11:08 | disposition home or self-care (01) | LOC: WOUND 11:07 | PROVIDERS: ATTEND Surgery | DX: E11.621 Type 2 diabetes mellitus with foot ulcer (principal); L97.412 Non-pressure chronic ulcer of right heel and midfoot with fat layer exposed; L97.512 Non-pressure chronic ulcer of other part of right foot with fat layer exposed; E11.22 Type 2 diabetes mellitus with diabetic chronic kidney disease; N18.6 End stage renal disease; E11.42 Type 2 diabetes mellitus with diabetic polyneuropathy; Z90.710 Acquired absence of both cervix and uterus | CPT/HCPCS: 15275; 97605 ==

== ENCOUNTER 2019-04-09 11:26 | Outpatient (CLI) | payer MEDICARE | END 2019-04-09 11:27 | disposition home or self-care (01) | LOC: WOUND 11:26 | PROVIDERS: ATTEND Surgery | DX: E11.621 Type 2 diabetes mellitus with foot ulcer (principal); L97.412 Non-pressure chronic ulcer of right heel and midfoot with fat layer exposed; L84 Corns and callosities; E11.22 Type 2 diabetes mellitus with diabetic chronic kidney disease; N18.6 End stage renal disease; E11.42 Type 2 diabetes mellitus with diabetic polyneuropathy; Z90.710 Acquired absence of both cervix and uterus | CPT/HCPCS: 97605 ==

== ENCOUNTER 2019-04-12 11:13 | Outpatient (CLI) | payer MEDICARE | END 2019-04-12 11:14 | disposition home or self-care (01) | LOC: WOUND 11:13 | PROVIDERS: ATTEND Surgery | DX: E11.621 Type 2 diabetes mellitus with foot ulcer (principal); L97.412 Non-pressure chronic ulcer of right heel and midfoot with fat layer exposed; L84 Corns and callosities; E11.22 Type 2 diabetes mellitus with diabetic chronic kidney disease; N18.6 End stage renal disease; E11.42 Type 2 diabetes mellitus with diabetic polyneuropathy; Z90.710 Acquired absence of both cervix and uterus | CPT/HCPCS: 97605 ==

== ENCOUNTER 2019-04-16 11:03 | Outpatient (CLI) | payer MEDICARE | END 2019-04-16 11:04 | disposition home or self-care (01) | LOC: WOUND 11:03 | PROVIDERS: ATTEND Surgery | DX: E11.621 Type 2 diabetes mellitus with foot ulcer (principal); L97.412 Non-pressure chronic ulcer of right heel and midfoot with fat layer exposed; E11.22 Type 2 diabetes mellitus with diabetic chronic kidney disease; N18.6 End stage renal disease; E11.42 Type 2 diabetes mellitus with diabetic polyneuropathy; Z99.2 Dependence on renal dialysis; Z90.710 Acquired absence of both cervix and uterus | CPT/HCPCS: 97605 ==

== ENCOUNTER 2019-04-19 10:51 | Outpatient (CLI) | payer MEDICARE | END 2019-04-19 10:52 | disposition home or self-care (01) | LOC: WOUND 10:51 | PROVIDERS: ATTEND Surgery | DX: E11.621 Type 2 diabetes mellitus with foot ulcer (principal); L97.412 Non-pressure chronic ulcer of right heel and midfoot with fat layer exposed; E11.22 Type 2 diabetes mellitus with diabetic chronic kidney disease; N18.6 End stage renal disease; E11.42 Type 2 diabetes mellitus with diabetic polyneuropathy; Z99.2 Dependence on renal dialysis; Z90.710 Acquired absence of both cervix and uterus | CPT/HCPCS: 99213; G0463 ==

== ENCOUNTER 2019-04-26 11:05 | Outpatient (CLI) | payer MEDICARE | END 2019-04-26 11:06 | disposition home or self-care (01) | LOC: WOUND 11:05 | PROVIDERS: ATTEND Surgery | DX: E11.621 Type 2 diabetes mellitus with foot ulcer (principal); L97.412 Non-pressure chronic ulcer of right heel and midfoot with fat layer exposed; L97.512 Non-pressure chronic ulcer of other part of right foot with fat layer exposed; L84 Corns and callosities; E11.22 Type 2 diabetes mellitus with diabetic chronic kidney disease; N18.6 End stage renal disease; E11.42 Type 2 diabetes mellitus with diabetic polyneuropathy; Z99.2 Dependence on renal dialysis; Z90.710 Acquired absence of both cervix and uterus ==

== ENCOUNTER 2019-05-03 10:52 | Outpatient (CLI) | payer MEDICARE | END 2019-05-03 10:53 | disposition home or self-care (01) | LOC: WOUND 10:52 | PROVIDERS: ATTEND Surgery | DX: E11.621 Type 2 diabetes mellitus with foot ulcer (principal); L97.412 Non-pressure chronic ulcer of right heel and midfoot with fat layer exposed; L97.512 Non-pressure chronic ulcer of other part of right foot with fat layer exposed; L84 Corns and callosities; E11.22 Type 2 diabetes mellitus with diabetic chronic kidney disease; N18.6 End stage renal disease; E11.42 Type 2 diabetes mellitus with diabetic polyneuropathy; Z99.2 Dependence on renal dialysis; Z90.710 Acquired absence of both cervix and uterus ==

== ENCOUNTER 2019-05-10 11:12 | Outpatient (CLI) | payer MEDICARE | END 2019-05-10 11:13 | disposition home or self-care (01) | LOC: WOUND 11:12 | PROVIDERS: ATTEND Surgery | DX: E11.621 Type 2 diabetes mellitus with foot ulcer (principal); L97.412 Non-pressure chronic ulcer of right heel and midfoot with fat layer exposed; L97.512 Non-pressure chronic ulcer of other part of right foot with fat layer exposed; L84 Corns and callosities; E11.22 Type 2 diabetes mellitus with diabetic chronic kidney disease; N18.6 End stage renal disease; E11.42 Type 2 diabetes mellitus with diabetic polyneuropathy; Z99.2 Dependence on renal dialysis; Z90.710 Acquired absence of both cervix and uterus | CPT/HCPCS: 99213; G0463 ==

== ENCOUNTER 2019-05-17 11:12 | Outpatient (CLI) | payer MEDICARE | END 2019-05-17 11:13 | disposition home or self-care (01) | LOC: WOUND 11:12 | PROVIDERS: ATTEND Surgery | DX: E11.621 Type 2 diabetes mellitus with foot ulcer (principal); L97.412 Non-pressure chronic ulcer of right heel and midfoot with fat layer exposed; L97.512 Non-pressure chronic ulcer of other part of right foot with fat layer exposed; L84 Corns and callosities; E11.22 Type 2 diabetes mellitus with diabetic chronic kidney disease; N18.6 End stage renal disease; E11.42 Type 2 diabetes mellitus with diabetic polyneuropathy; Z99.2 Dependence on renal dialysis; Z90.710 Acquired absence of both cervix and uterus | CPT/HCPCS: 99213; G0463 ==

== ENCOUNTER 2019-06-07 11:15 | Outpatient (CLI) | payer MEDICARE | END 2019-06-07 11:16 | disposition home or self-care (01) | LOC: WOUND 11:15 | PROVIDERS: ATTEND Surgery | DX: E11.621 Type 2 diabetes mellitus with foot ulcer (principal); L97.512 Non-pressure chronic ulcer of other part of right foot with fat layer exposed; L97.412 Non-pressure chronic ulcer of right heel and midfoot with fat layer exposed; L84 Corns and callosities; E11.42 Type 2 diabetes mellitus with diabetic polyneuropathy; E11.22 Type 2 diabetes mellitus with diabetic chronic kidney disease; N18.6 End stage renal disease; Z90.710 Acquired absence of both cervix and uterus ==

== ENCOUNTER 2019-06-14 10:53 | Outpatient (CLI) | payer MEDICARE ==
[2019-06-14] MEDS ORDERED: VITAMIN A & D OINT 56.7 GM TP PRN (12:30)
== END 2019-06-14 10:54 | disposition home or self-care (01) ==
LOC: WOUND 10:53
PROVIDERS: ATTEND Surgery
DX: E11.621 Type 2 diabetes mellitus with foot ulcer (principal); L97.512 Non-pressure chronic ulcer of other part of right foot with fat layer exposed; L97.412 Non-pressure chronic ulcer of right heel and midfoot with fat layer exposed; L84 Corns and callosities; E11.40 Type 2 diabetes mellitus with diabetic neuropathy, unspecified; E11.22 Type 2 diabetes mellitus with diabetic chronic kidney disease; N18.6 End stage renal disease; Z90.710 Acquired absence of both cervix and uterus
CPT/HCPCS: A6250